=== PATIENT | male | born 1970 | race Caucasian/White ===

== ENCOUNTER → 2024-10-09 08:08 | Outpatient (REF) | payer OTHER, SELFPAY | LOC: EMG 08:08 | PROVIDERS: ATTENDING PHYSICIAN Family Medicine | DX: G62.9 Polyneuropathy, unspecified (principal); R20.0 Anesthesia of skin | CPT/HCPCS: 95886; 95910 ==

== ENCOUNTER → 2024-12-13 08:53 | Outpatient (REF) | payer OTHER, SELFPAY | LOC: PAVMRI 08:53 | PROVIDERS: ATTENDING PHYSICIAN Family Medicine | DX: N28.1 Cyst of kidney, acquired (principal) | CPT/HCPCS: 74183; A9575 ==